=== PATIENT | female | born 1955 | race Caucasian/White ===

== ENCOUNTER 2016-07-27 13:50 | Outpatient (CLI) | payer OTHER ==
[~2016-07-27 13:50] MED LIST: AMIODARONE HCL200 MG PO; AMLODIPINE BESYL5 MG PO; ASPIRIN ADULT L81 M1 PO; ATORVASTATIN CA40 MG PO; DILT-XR240 MG PO; FISH OIL1000 M1; FLUOXETINE HCL40 MG PO; HYDROCHLOROTH12.5 MG PO; HYDROXYZINE HCL25 MG PO; JANUVIA50 MG PO; LANTUS SOL100 UNITS/ SC; LISINOPRIL10 MG PO; LISINOPRIL20 MG PO; LOPRESSOR25 MG PO; MAG-G500 MG PO; METFORMIN HCL1000 M1 PO; METFORMIN HCL500 MG PO; MULTIPLE VITAMIN PO; NORCO1 TA1 PO; NORVASC10 MG; PROPAFENONE HC225 M1 PO; PROZAC20 MG PO; RED YEAST RICE600 MG; TOPROL XL50 MG PO; VITAMIN D-31000 UNIT PO; XARELTO10 MG PO
--- NOTE | 2016-07-27 14:30 | DIAGNOSTIC IMAGING REPORT ---
PROCEDURE: XR KNEE 3 VIEWS - RIGHT INDICATION: ARTHRITIS TECHNIQUE: Three views COMPARISON: None. FINDINGS: Mild to moderate spur formation all three joint compartments. No fracture or suspicious osseous lesion. No effusion. IMPRESSION: 1. Mild to moderate osteoarthritic changes of all three joint compartments
== END 2016-07-27 23:00 ==
LOC: XR SRH 13:50
DX: M17.11 Unilateral primary osteoarthritis, right knee (principal)

== ENCOUNTER 2016-09-17 11:45 | Emergency (ER) | payer OTHER ==
--- NOTE | 2016-09-17 12:12 | ED ORDER SUMMARY ---
..... Patient: DHRUV NICHOLS OrderSheet [facility] VisitID: [id number] [address] [place] [address] 61y, F Registration Date/Time: 09/17/2016 ORDER SHEET Weight: 112.0 kg (stated) Allergies: NKDA GENERAL ORDERS: MEDICATION ORDERS: Proparacaine Eye Drops (Solution 0.5 %) 2 drops (place at bedside) (11:53 09/17/2016 Osiris Canseco) (12:03 DDean R.N.) Fluorescein Eye Strips 1 strips (bedside) (11:53 09/17/2016 Osiris Canseco) (12:04 DDeaamrit R.N.) IV FLUIDS: ORDER SHEET NOTES: [Electronically signed by Akbar Noble Dr. (12:24 09/17/2016)] [Electronically signed by July Ferreira R.N. (13:56 09/17/2016)] [Electronically locked/signed by July Ferreira R.N. (13:56 09/17/2016)]
--- NOTE | 2016-09-17 12:12 | ED CLINICAL REPORT ---
Clinical Report - Physicians/Mid Levels [facility] [address] [place] [address] 09/17/2016 11:46 Patient: DHRUV NICHOLS Time Seen: 1152; initial patient contact. Arrived- By private vehicle. Historian- patient. HISTORY OF PRESENT ILLNESS Chief Complaint: EYE PAIN. This started past 6 weeks, involves the left eye, is characterized as moderate in severity and has been constant and is still present. The patient did not sustain an injury. This occurred at home. She has had UV light exposure (mowed the lawn yesterday). No chemical exposure. Eye discomfort. No blurred vision, double vision or decreased vision. Patient also notes other injury (none). ( states it got worse after working out. mentioned it to her PCP and might get a referral to ophtho.). REVIEW OF SYSTEMS No fever, sore throat or cough. All systems otherwise negative, except as recorded above. PAST HISTORY See nurses notes. Tetanus immunization status is up-to-date. SOCIAL HISTORY Never smoker. No alcohol use or drug use. ADDITIONAL NOTES The nursing notes have been reviewed. PHYSICAL EXAM Vital Signs: 09/17/2016 11:56 BP: 188/92. HR: 83. RR: 18. O2 saturation: 100%. Temp: 98.3 F. Pain level now: 7/10. Oxygen saturation normal. Appearance: Alert. Oriented X3. No acute distress. HEENT: Ears normal. Nose normal. Pharynx normal. Head appears normal to external inspection. Rt Eye: Pupil 4mm. Eyes: Visual acuity noted- see nurse's notes. Pupils equal, round and reactive to light. Accommodation normal. normal lids, lashes, and lacrimals. NO FB. No uptake of fluorescence. Negative Fauzia's sign. No dendritic pattern. No cell and flare. Pressure in right it 18 and 19 on left. no proptosis of the eye. Lt Eye: Pupil 4mm. Neck: Neck supple. Normal inspection. CVS: Normal heart rate and rhythm. Heart sounds normal. Respiratory: No respiratory distress. Breath sounds normal. Abdomen: Nontender. No organomegaly. : Normal genitalia. Neuro: Oriented X 3. Mood/affect normal. No motor deficit. No sensory deficit. (normal gait). PROGRESS AND PROCEDURES Course of Care: the patient is a pleasant 61 yo female with pain to the left eye. no other findings noted on exam. baseline neurologic exam. no other findings to suggest infectious etiology. no signs of glaucoma. patient non-toxic. improved pain with eye drops. only known incident is sun exposure mowing the lawn. begin etiology favored. would like patient to follow up with ophtho because of long course of pain. no signs of amaurosis fugax. Disposition: Discharged. Condition: good. CLINICAL IMPRESSION Acute eye pain left eye. INSTRUCTIONS Warnings: GENERAL WARNINGS: Return or contact your physician immediately if your condition worsens or changes unexpectedly, if not improving as expected, or if other problems arise. Specifically return if pain, vomiting, bleeding, breathing difficulty or fever. Follow-up: Return to the emergency department as needed. Follow up with your doctor in three days. Reason for referral: recheck today's concerns. Summary of care provided to patient via paper. Screening today revealed the patient's blood pressure to be in the normal range. The patient should follow up with a primary care provider for blood pressure management. Understanding of the discharge instructions verbalized by patient. Follow-up with: Vijay Argueta MD, Ophthalmology, , [facility], [address] [place] [address] Follow up in two days. Reason for referral: recheck today's concerns. Summary of care provided to patient via paper. (Electronically signed by Akbar Noble Dr. 09/17/2016 12:24)
--- NOTE | 2016-09-17 12:12 | ED NURSING NOTES ---
Clinical Report - Nurses [facility] [address] [place] [address] 09/17/2016 11:46 Patient: DHRUV NICHOLS TRIAGE Triage time 1150. Acuity: LEVEL 3. Chief Complaint: (Pt in c//o severe pain in left eye after "working out" yesterday (30 min on treadmill)). 11:50. VISUAL ACUITY: Visual acuity performed without corrective lenses: left eye 20/40 minus two letters; right eye 20/50. --12:01 July Ferreira R.N. 11:56 09/17/16. BP: 188/92. HR: 83. RR: 18. O2 saturation: 100%. Temp: 98.3 F. Pain level now: 11/09. --12:01 July Ferreira R.N. Weight: 112 kg stated. Height/Length: 66 inches Per Patient. BMI: 39.9. --11:57 July Ferreira R.N. Medications Lisinopril Oral 20 mg- 2 tabs, 2x a day. Metformin HCl Oral 1000 mg, 2x a day. --13:56 July Ferreira R.N. Allergies NKDA. --13:56 July Ferreira R.N. History Arrived by private vehicle. Historian: patient. Unaccompanied. Primary physician (sona). ( pt states she also saw something "floating" in her right eye. Pt also had some vertigo yesterday that lasted for about an hour). She has had eye discomfort. No eye discharge, photophobia, blurred vision or decreased vision. SOCIAL HX: Never smoker. No alcohol use or drug use. --12:01 July Ferreira R.N. PROBLEMS: Temporal Arteritis. Anemia. Wears Contacts. Atrial Fibrillation. Diabetes Mellitus. Hypertension. --11:59 July Ferreira R.N. ADDITIONAL SURGERIES: Adenoidectomy. Appendectomy. Cholecystectomy. Hysterectomy. Tonsillectomy. --11:59 July Ferreira R.N. Interventions ID band on patient. To treatment room. --12:01 July Ferreira R.N. PHYSICAL ASSESSMENT 11:50. Ambulatory to room. GENERAL / NEURO / PSYCH: Alert. Appears in no acute distress. Appears anxious. HEENT: No facial asymmetry noted. No photophobia. RESPIRATORY: Respirations not labored. CVS: Capillary refill less than 2 seconds. SKIN: Skin is warm and dry. --12:05 July Ferreira R.N. 11:50. GENERAL / NEURO / PSYCH: ( , no facial droop, speech clear, production line equal). --12:06 July Ferreira R.N. NURSING PROGRESS NOTES 12:03 09/17/2016 Proparacaine Eye Drops Opthalmic solution 2 drop given. Given in the left eye. (given to PRINCE for use w slit lamp). --12:03 July Ferreira R.N. 12:04 09/17/2016 FLUORESCEIN Opth soln Opthalmic solution 1 Strip given. Given in the left eye. ([facility] --12:04 July Ferreira R.N. 11:50. Head of bed elevated. Reassurance given. Patient identifiers checked. Call light placed in reach. Side rails up. Bed placed in lowest position. Patient ready for evaluation- chart flagged. --12:04 July Ferreira R.N. 12:04 09/17/16. ( exam by PRINCE with slit lamp). --12:04 July Ferreira R.N. 12:08 09/17/16. ( glaucoma pressure test done by PRINCE). --12:08 July Ferreira R.N. DISPOSITION / DISCHARGE 12:25. Condition at departure: stable. No learning barriers present. Discharge instructions provided and reviewed with the patient. Reviewed referral to an missile tracking technician. Patient verbalized understanding. Written instructions provided in Ecuadorean. The patient was discharged home and accompanied by spouse. She left the Emergency Department ambulatory and via private vehicle. Patient driving. --13:55 July Ferreira R.N. 12:25 09/17/16. BP: 149/71. HR: 78. RR: 20. O2 saturation: 98%. Temp: deferred. Pain level now: 11/09. --13:55 July Ferreira R.N. Locked/Released at 09/17/2016 13:56 by July Ferreira R.N.
--- NOTE | 2016-09-17 12:12 | ED NURSING NOTES ---
Clinical Report - Nurses [facility] [address] [place] [address] 09/17/2016 11:46 Patient: DHRUV NICHOLS TRIAGE Triage time 1150. Acuity: LEVEL 3. Chief Complaint: (Pt in c//o severe pain in left eye after "working out" yesterday (30 min on treadmill)). 11:50. VISUAL ACUITY: Visual acuity performed without corrective lenses: left eye 20/40 minus two letters; right eye 20/50. --12:01 July Ferreira R.N. 11:56 09/17/16. BP: 188/92. HR: 83. RR: 18. O2 saturation: 100%. Temp: 98.3 F. Pain level now: 11/09. --12:01 July Ferreira R.N. Weight: 112 kg stated. Height/Length: 66 inches Per Patient. BMI: 39.9. --11:57 July Ferreira R.N. Medications Lisinopril Oral 20 mg- 2 tabs, 2x a day. Metformin HCl Oral 1000 mg, 2x a day. --13:56 July Ferreira R.N. Allergies NKDA. --13:56 July Ferreira R.N. History Arrived by private vehicle. Historian: patient. Unaccompanied. Primary physician (sona). ( pt states she also saw something "floating" in her right eye. Pt also had some vertigo yesterday that lasted for about an hour). She has had eye discomfort. No eye discharge, photophobia, blurred vision or decreased vision. SOCIAL HX: Never smoker. No alcohol use or drug use. --12:01 July Ferreira R.N. PROBLEMS: Temporal Arteritis. Anemia. Wears Contacts. Atrial Fibrillation. Diabetes Mellitus. Hypertension. --11:59 July Ferreira R.N. ADDITIONAL SURGERIES: Adenoidectomy. Appendectomy. Cholecystectomy. Hysterectomy. Tonsillectomy. --11:59 July Ferreira R.N. Interventions ID band on patient. To treatment room. --12:01 July Ferreira R.N. PHYSICAL ASSESSMENT 11:50. Ambulatory to room. GENERAL / NEURO / PSYCH: Alert. Appears in no acute distress. Appears anxious. HEENT: No facial asymmetry noted. No photophobia. RESPIRATORY: Respirations not labored. CVS: Capillary refill less than 2 seconds. SKIN: Skin is warm and dry. --12:05 July Ferreira R.N. 11:50. GENERAL / NEURO / PSYCH: ( , no facial droop, speech clear, camera control operator equal). --12:06 July Ferreira R.N. NURSING PROGRESS NOTES 12:03 09/17/2016 Proparacaine Eye Drops Opthalmic solution 2 drop given. Given in the left eye. (given to PRINCE for use w slit lamp). --12:03 July Ferreira R.N. 12:04 09/17/2016 FLUORESCEIN Opth soln Opthalmic solution 1 Strip given. Given in the left eye. ([facility]). --12:04 July Ferreira R.N. 11:50. Head of bed elevated. Reassurance given. Patient identifiers checked. Call light placed in reach. Side rails up. Bed placed in lowest position. Patient ready for evaluation- chart flagged. --12:04 July Ferreira R.N. 12:04 09/17/16. ( exam by PRINCE with slit lamp). --12:04 July Ferreira R.N. 12:08 09/17/16. ( glaucoma pressure test done by PRINCE). --12:08 July Ferreira R.N. DISPOSITION / DISCHARGE 12:25. Condition at departure: stable. No learning barriers present. Discharge instructions provided and reviewed with the patient. Reviewed referral to an philosophy faculty. Patient verbalized understanding. Written instructions provided in Nauruan. The patient was discharged home and accompanied by spouse. She left the Emergency Department ambulatory and via private vehicle. Patient driving. --13:55 July Ferreira R.N. 12:25 09/17/16. BP: 149/71. HR: 78. RR: 20. O2 saturation: 98%. Temp: deferred. Pain level now: 11/09. --13:55 July Ferreira R.N. Locked/Released at 09/17/2016 13:56 by July Ferreira R.N.
--- NOTE | 2016-09-17 12:12 | ED CLINICAL REPORT ---
Clinical Report - Physicians/Mid Levels [facility] [address] [place] [address] 09/17/2016 11:46 Patient: DHRUV NICHOLS Time Seen: 1152; initial patient contact. Arrived- By private vehicle. Historian- patient. HISTORY OF PRESENT ILLNESS Chief Complaint: EYE PAIN. This started past 6 weeks, involves the left eye, is characterized as moderate in severity and has been constant and is still present. The patient did not sustain an injury. This occurred at home. She has had UV light exposure (mowed the lawn yesterday). No chemical exposure. Eye discomfort. No blurred vision, double vision or decreased vision. Patient also notes other injury (none). ( states it got worse after working out. mentioned it to her PCP and might get a referral to ophtho.). REVIEW OF SYSTEMS No fever, sore throat or cough. All systems otherwise negative, except as recorded above. PAST HISTORY See nurses notes. Tetanus immunization status is up-to-date. SOCIAL HISTORY Never smoker. No alcohol use or drug use. ADDITIONAL NOTES The nursing notes have been reviewed. PHYSICAL EXAM Vital Signs: 09/17/2016 11:56 BP: 188/92. HR: 83. RR: 18. O2 saturation: 100%. Temp: 98.3 F. Pain level now: 7/10. Oxygen saturation normal. Appearance: Alert. Oriented X3. No acute distress. HEENT: Ears normal. Nose normal. Pharynx normal. Head appears normal to external inspection. Rt Eye: Pupil 4mm. Eyes: Visual acuity noted- see nurse's notes. Pupils equal, round and reactive to light. Accommodation normal. normal lids, lashes, and lacrimals. NO FB. No uptake of fluorescence. Negative Fauzia's sign. No dendritic pattern. No cell and flare. Pressure in right it 18 and 19 on left. no proptosis of the eye. Lt Eye: Pupil 4mm. Neck: Neck supple. Normal inspection. CVS: Normal heart rate and rhythm. Heart sounds normal. Respiratory: No respiratory distress. Breath sounds normal. Abdomen: Nontender. No organomegaly. : Normal genitalia. Neuro: Oriented X 3. Mood/affect normal. No motor deficit. No sensory deficit. (normal gait). PROGRESS AND PROCEDURES Course of Care: the patient is a pleasant 61 yo female with pain to the left eye. no other findings noted on exam. baseline neurologic exam. no other findings to suggest infectious etiology. no signs of glaucoma. patient non-toxic. improved pain with eye drops. only known incident is sun exposure mowing the lawn. begin etiology favored. would like patient to follow up with ophtho because of long course of pain. no signs of amaurosis fugax. Disposition: Discharged. Condition: good. CLINICAL IMPRESSION Acute eye pain left eye. INSTRUCTIONS Warnings: GENERAL WARNINGS: Return or contact your physician immediately if your condition worsens or changes unexpectedly, if not improving as expected, or if other problems arise. Specifically return if pain, vomiting, bleeding, breathing difficulty or fever. Follow-up: Return to the emergency department as needed. Follow up with your doctor in three days. Reason for referral: recheck today's concerns. Summary of care provided to patient via paper. Screening today revealed the patient's blood pressure to be in the normal range. The patient should follow up with a primary care provider for blood pressure management. Understanding of the discharge instructions verbalized by patient. Follow-up with: Vijay Argueta MD, Ophthalmology, , [facility], [address] [place] [address] Follow up in two days. Reason for referral: recheck today's concerns. Summary of care provided to patient via paper. (Electronically signed by Akbar Noble Dr. 09/17/2016 12:24)
--- NOTE | 2016-09-17 12:12 | ED ORDER SUMMARY ---
..... Patient: DHRUV NICHOLS OrderSheet [facility] VisitID: [id number] [address] [place] [address] 61y, F Registration Date/Time: 09/17/2016 ORDER SHEET Weight: 112.0 kg (stated) Allergies: NKDA GENERAL ORDERS: MEDICATION ORDERS: Proparacaine Eye Drops (Solution 0.5 %) 2 drops (place at bedside) (11:53 09/17/2016 Osiris Canseco) (12:03 DDean R.N.) Fluorescein Eye Strips 1 strips (bedside) (11:53 09/17/2016 Osiris Canseco) (12:04 DDeaamrit R.N.) IV FLUIDS: ORDER SHEET NOTES: [Electronically signed by Akbar Noble Dr. (12:24 09/17/2016)] [Electronically signed by July Ferreira R.N. (13:56 09/17/2016)] [Electronically locked/signed by July Ferreira R.N. (13:56 09/17/2016)]
--- NOTE | 2016-09-17 13:56 | ED DISCHARGE INSTRUCTIONS ---
Patient: DHRUV NICHOLS General Instructions [facility] VisitID: [id number] [place] [address] 61y, F Registration Date/Time: 09/17/2016 Acute eye pain left eye. INSTRUCTIONS Warnings: GENERAL WARNINGS: Return or contact your physician immediately if your condition worsens or changes unexpectedly, if not improving as expected, or if other problems arise. Specifically return if pain, vomiting, bleeding, breathing difficulty or fever. Follow-up: Return to the emergency department as needed. Follow up with your doctor in three days. Reason for referral: recheck today's concerns. Summary of care provided to patient via paper. Screening today revealed the patient's blood pressure to be in the normal range. The patient should follow up with a primary care provider for blood pressure management. Understanding of the discharge instructions verbalized by patient. Follow-up with: Vijay Argueta MD, Ophthalmology, , [facility], [address] [place] [address] Follow up in two days. Reason for referral: recheck today's concerns. Summary of care provided to patient via paper. ADDITIONAL INFORMATION Uveitis Uveitis is an inflammation inside the eye. This can be caused by trauma to the eye or disease elsewhere in the body (gout, Lyme's disease, rheumatoid arthritis, inflammatory bowel disease). In many cases, the cause cannot be determined. Depending on what part of the eye is affected and the cause, symptoms may last only a few days or weeks (the most common type). In some cases, it may take months to years to resolve. In severe chronic cases, vision may be affected permanently. Symptoms include eye pain, redness, blurred vision, sensitivity to light, and floating spots in your vision. This may occur in one or both eyes. Treatment depends on the severity of symptoms and the cause of the uveitis. Home Care: Use medicines as prescribed. Wear sunglasses to decrease light sensitivity and discomfort. If your eye is dilated or if an eye patch was applied, your driving ability will be affected. Do not drive until the blurred vision wears off and you no longer need an eye patch. You may use acetaminophen (Tylenol) or ibuprofen (Motrin, Advil) to control pain, unless another medicine was prescribed. [NOTE:If you have chronic liver or kidney disease or ever had a stomach ulcer or GI bleeding, talk with your doctor before using these medicines.] Follow Up with your doctor or an eyeglass lens cutter or as advised by our staff. Further testing will be needed to evaluate severe or persistent symptoms. Get Prompt Medical Attention if any of the following occur: Increasing eye pain Eye becomes reddened Sudden, partial or complete vision loss in one or both eyes You have been given the following additional information: Uveitis (Electronically signed by Akbar Noble Dr. 09/17/2016 12:24)
--- NOTE | 2016-09-17 13:56 | ED MAR SUMMARY ---
..... Medication Administration Record [facility] [address] [place] [address] Patient: DHRUV NICHOLS Visit ID: [id number] 61y, F Weight: 112.0 kg Height/Length: 66 in BMI: 39.9 ALLERGIES: NKDA Given 12:03 09/17/2016 July Ferreira R.N. Medication Administered: PROPARACAINE [EYE DROPS], Dose: 2 drop Opthalmic solution Eye Drops. Medication Ordered: Proparacaine Eye Drops (Solution 0.5 %) 2 drops (place at bedside). Given 12:04 09/17/2016 July Ferreira RLeaN. Medication Administered: FLUORESCEIN [EYE STRIPS], Dose: 1 Strip Opthalmic solution Opth soln. Medication Ordered: Fluorescein Eye Strips 1 strips (bedside).
--- NOTE | 2016-09-17 13:56 | ED MED RECONCILIATION SUMMARY ---
Patient: DHRUV NICHOLS Medication Reconciliation Report [facility] VisitID: [id number] [address] [place] [address] 61y, F Registration Date/Time: 09/17/2016 Weight: 112.0 kg Height/Length: 66 in. BMI: 39.9 ALLERGIES: NKDA The patient's Home Medications are listed below: THE FOLLOWING MEDICATIONS NEED TO BE RECONCILED: Lisinopril Oral 20 mg- 2 tabs, 2x a day Metformin HCl Oral 1000 mg, 2x a day The source(s) of the original Home Medication information: Not obtained. The following Medications were given to the patient in the Emergency Department: Proparacaine [Eye Drops] Eye Drops 2 drop, administered: 09/17/2016 12:03:00 PM FLUORESCEIN [EYE STRIPS] Opth soln 1 Strip, administered: 09/17/2016 12:04:00 PM The following Medications were prescribed to the patient: None.
--- NOTE | 2016-09-17 13:56 | ED DISCHARGE INSTRUCTIONS ---
Patient: DHRUV NICHOLS General Instructions [facility] VisitID: [id number] [place] [address] 61y, F Registration Date/Time: 09/17/2016 Acute eye pain left eye. INSTRUCTIONS Warnings: GENERAL WARNINGS: Return or contact your physician immediately if your condition worsens or changes unexpectedly, if not improving as expected, or if other problems arise. Specifically return if pain, vomiting, bleeding, breathing difficulty or fever. Follow-up: Return to the emergency department as needed. Follow up with your doctor in three days. Reason for referral: recheck today's concerns. Summary of care provided to patient via paper. Screening today revealed the patient's blood pressure to be in the normal range. The patient should follow up with a primary care provider for blood pressure management. Understanding of the discharge instructions verbalized by patient. Follow-up with: Vijay Argueta MD, Ophthalmology, , [facility], [address] [place] [address] Follow up in two days. Reason for referral: recheck today's concerns. Summary of care provided to patient via paper. ADDITIONAL INFORMATION Uveitis Uveitis is an inflammation inside the eye. This can be caused by trauma to the eye or disease elsewhere in the body (gout, Lyme's disease, rheumatoid arthritis, inflammatory bowel disease). In many cases, the cause cannot be determined. Depending on what part of the eye is affected and the cause, symptoms may last only a few days or weeks (the most common type). In some cases, it may take months to years to resolve. In severe chronic cases, vision may be affected permanently. Symptoms include eye pain, redness, blurred vision, sensitivity to light, and floating spots in your vision. This may occur in one or both eyes. Treatment depends on the severity of symptoms and the cause of the uveitis. Home Care: Use medicines as prescribed. Wear sunglasses to decrease light sensitivity and discomfort. If your eye is dilated or if an eye patch was applied, your driving ability will be affected. Do not drive until the blurred vision wears off and you no longer need an eye patch. You may use acetaminophen (Tylenol) or ibuprofen (Motrin, Advil) to control pain, unless another medicine was prescribed. [NOTE:If you have chronic liver or kidney disease or ever had a stomach ulcer or GI bleeding, talk with your doctor before using these medicines.] Follow Up with your doctor or an business operations specialist or as advised by our staff. Further testing will be needed to evaluate severe or persistent symptoms. Get Prompt Medical Attention if any of the following occur: Increasing eye pain Eye becomes reddened Sudden, partial or complete vision loss in one or both eyes You have been given the following additional information: Uveitis (Electronically signed by Akbar Noble Dr. 09/17/2016 12:24)
--- NOTE | 2016-09-17 13:56 | ED MAR SUMMARY ---
..... Medication Administration Record [facility] [address] [place] [address] Patient: DHRUV NICHOLS Visit ID: [id number] 61y, F Weight: 112.0 kg Height/Length: 66 in BMI: 39.9 ALLERGIES: NKDA Given 12:03 09/17/2016 July Ferreira R.N. Medication Administered: PROPARACAINE [EYE DROPS], Dose: 2 drop Opthalmic solution Eye Drops. Medication Ordered: Proparacaine Eye Drops (Solution 0.5 %) 2 drops (place at bedside). Given 12:04 09/17/2016 July Ferreira RLeaN. Medication Administered: FLUORESCEIN [EYE STRIPS], Dose: 1 Strip Opthalmic solution Opth soln. Medication Ordered: Fluorescein Eye Strips 1 strips (bedside).
--- NOTE | 2016-09-17 13:56 | ED MED RECONCILIATION SUMMARY ---
Patient: DHRUV NICHOLS Medication Reconciliation Report [facility] VisitID: [id number] [address] [place] [address] 61y, F Registration Date/Time: 09/17/2016 Weight: 112.0 kg Height/Length: 66 in. BMI: 39.9 ALLERGIES: NKDA The patient's Home Medications are listed below: THE FOLLOWING MEDICATIONS NEED TO BE RECONCILED: Lisinopril Oral 20 mg- 2 tabs, 2x a day Metformin HCl Oral 1000 mg, 2x a day The source(s) of the original Home Medication information: Not obtained. The following Medications were given to the patient in the Emergency Department: Proparacaine [Eye Drops] Eye Drops 2 drop, administered: 09/17/2016 12:03:00 PM FLUORESCEIN [EYE STRIPS] Opth soln 1 Strip, administered: 09/17/2016 12:04:00 PM The following Medications were prescribed to the patient: None.
== END 2016-09-17 12:25 | disposition home or self-care (01) ==
LOC: ED SRH 11:45
DX: H57.12 Ocular pain, left eye (principal)